=== PATIENT | female | born 1980 ===

== ENCOUNTER 2017-10-19 15:34 | Inpatient (IN) | payer OTHER ==
[2017-10-19 15:54] VITALS: BMI 34.7
[2017-10-19] MEDS ORDERED: Penicillin G Potassium 5 MU in Sodium Chloride 0.9% 50 ML IVPB ONE (16:00)
[2017-10-19] MEDS ORDERED: Oxytocin 30 UNITS in Sodium Chloride 0.9% 500 ML IV SCH (16:00)
[2017-10-19 17:20] LABS: BASO % 0.4 % (0.0-2.0); EOS % 0.5 % (0.0-4.0); HEMOGLOBIN 8.7 g/dL (12.0-16.0); LYMPH # 1.8 K/uL (1.0-4.3); LYMPH % 31.3 % (20.0-40.0); MEAN CELL VOLUME 75.4 fl (81.0-99.0); MEAN CORPUSCULAR HEMOGLOBIN 23.6 pg (27.0-31.0); MEAN CORPUSCULAR HGB CONC 31.3 g/dL (33.0-37.0); MEAN PLATELET VOLUME 8.6 fl (7.2-11.7); MONO # 0.4 K/uL (0.0-0.8); NEUT # 3.4 K/uL (1.8-7.0); NEUT % 60.8 % (50.0-75.0); NRBC % 0.4 % (0.0-0.0); RBC 3.68 Mil/uL (3.80-5.20); RED CELL DISTRIBUTION WIDTH 16.9 % (11.5-14.5); WHITE BLOOD COUNT 5.6 K/uL (4.8-10.8)
[2017-10-19 17:35] LABS: ALB/GLOB RATIO 0.9 (1.0-2.1); ALBUMIN 2.9 g/dL (3.5-5.0); ALT/SGPT 13 U/L (9-52); AST/SGOT 16 U/L (14-36); BLOOD UREA NITROGEN 7 mg/dl (7-17); CALCIUM 8.4 mg/dL (8.4-10.2); GFR AFRICAN-AMERICAN > 60; GFR NON-AFRICAN AMERICAN > 60
--- NOTE | 2017-10-19 18:01 | OBPN ---
Datetime: 10/19/2017 18:00 IP Progress Impression: Reassuring heart rate IP Informed Consent Obtain: Vaginal Delivery; Risks, Benefits and Alternatives Discussed IP Progress Plan: Induction; Cervical Ripening IP Progress Note Comment: OB Hospitalist note: Cervidil placed intravaginally Datetime: 10/19/2017 17:46 FHR - Baseline A Provider: 130 Vital Signs Provider: Reviewed; Within Normal Limits NICHD Accel Fetus A IP Provider: [id number] FHR Category Provider Fetus A: Category I NICHD Variability Prov Fetus A: Moderate 6-25bpm NICHD Decel Fetus A IP Provider: None
--- NOTE | 2017-10-19 20:39 | OBADHP ---
Datetime: 10/19/2017 17:46 Admit Comment, IP Provider: 37 at 39+1 wks presents for IOL due to GDM and history of LGA. She had previous deliverieds at [facility] with previous PMD Dr CARBONE. She lives in [facility] and m brayan arrangements through Dr Diaz CANE PILER, Jackelin Schmidt CP manager internet and staff at [facility] to be induced t sheba. Care at [facility] in [place] - chart rev'd. No recent sonogram for EFW but she states last w [place] 8.5lb and cephalic. labs: GBS+ urine. Hep neg, HIV, neg , RPR neg, Rubella immune. GC.CT negative PMH: GDM class A1 (controlled acc to pt - did not bring accuchecks), AMA POBGYNH: : x 3 NKA Exam: as above Vitals signs reviewed. FHT reviewed. A: IUP at 39 WKS GA with GDM, AMA, history of LGA here for scheduled induction P: admit to unit -initiate labor protocol -cbc, cmp, HIV/RPR -T_S -Penicillin -cervidil placed. Case discussed with Dr. Guevara. Eloy PGY2 OB hospitaliston-call...pt seen and examined by me...agree with note. Possible LGA discussed even with late sono 8.5lb, I explained that it could be +/- 10%. Risks/complications with LGA discussed incl shoulder dystocia and possible neurological sequlae. She understands and wants IOL...MAHNDO Pelvic Type - PN: Adequate Extremities - PN: Normal Abdomen - PN: Normal Back - PN: Normal Breast - PN: Not Done Lungs - PN: Normal Heart - PN: Normal Thyroid - PN: Normal Neurologic - PN: Normal HEENT - PN: Normal General - PN: Normal Presentation-Admit: Vertex FHR - Baseline A Provider: 130 Membranes, Provider: Intact Pool Provider: Negative IP Hx Assessment: The History has been Reviewed and is Current Vital Signs Provider: Reviewed; Within Normal Limits IP Chief Complaint: Scheduled induction of labor NICHD Variability Prov Fetus A: Moderate 6-25bpm NICHD Accel Fetus A IP Provider: [id number] FHR Category Provider Fetus A: Category I NICHD Decel Fetus A IP Provider: None Dilatation, Provider: 0 Effacement, Provider: 0 Genitourinary Exam: Normal DTRs - PN: Normal IP Adm Impression: Term, intrauterine ; No Active Labor; Intact Membranes IP Admit Plan: Admit to unit; Initiate labor induction protocol
[2017-10-19] MEDS: Lactated Ringer's 1,000 ML IV SCH ×3 (22:33→23:30)
[2017-10-19] MEDS ORDERED: Fentanyl/Bupivacaine HCl 250 ML EPI ONE (23:30)
[2017-10-19] MEDS ORDERED: Bupivacaine HCl 0.25% PF (10 ml) Inj ONE (23:34)
[2017-10-20] MEDS: Lactated Ringer's 1,000 ML IV SCH (08:04)
[2017-10-20 10:33] VITALS: RESP 18; O2SAT 100
[2017-10-20] MEDS ORDERED: Oxycodone/Acetaminophen 5/325 mg Tab PO PRN ×2 (11:49→14:08)
[2017-10-20] MEDS ORDERED: Benzocaine/Menthol SPRAY TOP PRN ×2 (11:49→14:08)
--- NOTE | 2017-10-20 12:25 | OBDS ---
MATERNAL INFORMATION Provider Comments: Delivered a live baby girl at 11:35 AM the baby was bulb suctioned on the perineu m and transferred to the maternal chest. The cord was clamped and cut 3 vessels noted. Cord blood was obtained and sent to the lab. The placenta was delivered at 11:37 AM intact, there is a first-degree laceration. The estimated blood loss was 100 mL. The mother tolerated the procedure well and the bab y went to the well baby nursery weighing 3970 g with Apgars of 9 and 9 LABOR SUMMARY No. Babies in Womb: 1 LABOR INFORMATION Cervical Ripening Agents: Cervidil Group B Beta Strep: Negative MEMBRANES Membranes Rupture Method: Artificial Amniotic Fluid Color: Clear Amniotic Fluid Amount: None Amniotic Fluid Odor: Normal PRESENTATION/POSITION BABY A Presentation: Cephalic
[2017-10-20] MEDS ORDERED: Influenza Vaccine 18yr & older 0.5 ML/45 MCG SYR IM ONE (19:20)
[2017-10-21 07:28] LABS: BASO % 0.6 % (0.0-2.0); EOS % 0.7 % (0.0-4.0); LYMPH # 2.3 K/uL (1.0-4.3); LYMPH % 30.7 % (20.0-40.0); MEAN CELL VOLUME 74.3 fl (81.0-99.0); MEAN CORPUSCULAR HGB CONC 32.3 g/dL (33.0-37.0); MONO # 0.5 K/uL (0.0-0.8); MONO % 6.6 % (0.0-10.0); NEUT # 4.7 K/uL (1.8-7.0); NEUT % 61.4 % (50.0-75.0); RBC 3.35 Mil/uL (3.80-5.20); RED CELL DISTRIBUTION WIDTH 17.1 % (11.5-14.5); WHITE BLOOD COUNT 7.6 K/uL (4.8-10.8)
[2017-10-22] MEDS ORDERED: Influenza Vaccine 18yr & older 0.5 ML/45 MCG SYR IM ONE (08:07)
--- NOTE | 2017-10-22 10:25 | OBDCSUM ---
Datetime: 10/22/2017 06:49 Discharged to, Provider: Home Follow up at, Provider: MD Estrella Instr Activity: Normal activity Disch Instr Diet: Regular Discharge Instructions, Provider: Routine instructions given Discharge Diagnosis, Provider: Term Delivered Discharge Time: 10/22/2017 13:00 Follow up in weeks, Provider: 4-6 weeks Disch Referrals: None Contraception discussed, Prov: Yes Disch Activity Restrictions: No sexual activity; Nothing in vagina - [place], tampons, douche Discharge Comment, Provider: Discharge Note: EGA: 39 wks Diagnosis: 37 y/o female s/p on 10/20/17 risk factors: GBS+ Bacturia [place]: Female, 3970g, 9/9 Post Summary: No complications during post period. Incision intact, Lochia less than menses. Flu given. Discharge Instructions: 1. Encourage 2. PNV 1 tab po daily 3. Ibuprofen 600mg 1 tab prn for mild-mod pain 5. Ferrous Sulfate 325mg BID 6. ER precautions: If excessive bleeding or fever without relief from medication, go to ED 7. F/U in 4-6 weeks Contraception after Delivery: Undecided
--- NOTE | 2017-10-22 10:25 | OBPPN ---
Datetime: 10/22/2017 06:49 PP Pain Prov: Within normal limits PP Nausea Prov: Denies PP Flatus Prov: Yes PP BM Prov: Yes PP Impression Prov: Normal progression PP Plan Prov: Continue present management; Discharge PP Progress Note Prov: PPD2 S: 37 y/o female s/p on 10/20/17 evaluated on PPD2. Pt was seen and examined at [facility] this AM. No overnight events. Pt complaints of aching pain along her thighs over the site of varic ose veins that has slightly improved since yesterday. Pt reports mild abdominal pain, but well contr olled with pain meds. Breast feeding (with formula supplementation) without difficulty. Lochia is sim ilar to menses volume. No BM, but pasting gas per rectum. Denies fever/chills, diarrhea, nausea/vomi ting, chest pain, dyspnea, and dizziness. O: VS: stable GEN: NAD Cardio: S1S2, no murmurs Lungs: clear breath sounds b/l, no wheezing Abdomen: BS+, appropriate tenderness to palpation. Uterus is firm and at the level of the umbilic us. EXT: No edema, calves nontender, diffusely scattered tortuous veins over thighs bilaterally, no so res, no erythema of skin, tender to palpation, homans negative, no calf tenderness NEURO/PSYCH: AAOx3, no grossly focal deficits, preserved affect and mood. Post H/H: 8.0/24.9 Assessment/Plan: 37 y/o female s/p on 10/20/17, doing well on PPD2. Pt remains afebri le, tolerating pain with medication. Tolerating diet. Anticipating d/c today. Flu vaccine ordered. Co ntinue with current management. Encourage and ambulating Motrin 600mg q6 for pain. Sen[place]ot 17.2 mg PO HS Ferrous Sulfate BID Case d/w OB Hospitalist Martha Cat, PGY1 Addendum by Dr. Gamino: I have evaluated the patient independently and I agree with the above IP PP Procedures: None Vital Signs Provider PP: Reviewed; Within Normal Limits Datetime: 10/21/2017 06:02 PP Breasts Prov: Not Done PP Heart Prov: Normal PP Lungs Prov: Normal PP Abdomen/Uterus Prov: Normal PP Lochia Prov: Normal PP Vulva/Perineum Prov: Not Done PP CVA Tenderness Prov: Not Done PP Extremities Prov: Normal PP C/S Incision Prov: Not Applicable PP Progress Prov: Normal
[2017-10-22 21:34] VITALS: BP 115/75; PULSE 67; TEMP 97.7
== END 2017-10-22 16:00 | disposition home or self-care (01) | DRG 372 ==
LOC: H.EROB2 15:34 → H.L&D 15:57 → H.OB/GYN 10-20 14:20
PROVIDERS: ADMIT Obstetrics & Gynecology; ATTEND Obstetrics & Gynecology
PROC: 10E0XZZ Delivery of Products of Conception, External Approach (ICD-10-PCS; principal; 2017-10-19)
PROC: 4A1HXCZ Monitoring of Products of Conception, Cardiac Rate, External Approach (ICD-10-PCS; 2017-10-19)
PROC: 0HQ9XZZ Repair Perineum Skin, External Approach (ICD-10-PCS; 2017-10-19)
DX: O24.429 Gestational diabetes mellitus in childbirth, unspecified control (principal); O70.0 First degree perineal laceration during delivery; Z37.0 Single live birth; Z23 Encounter for immunization; Z3A.39 39 weeks gestation of pregnancy; O87.4 Varicose veins of lower extremity in the puerperium; O99.824 Streptococcus B carrier state complicating childbirth